=== PATIENT | male | born 1965 | race Caucasian/White ===

== ENCOUNTER 2016-11-23 20:08 | Emergency (ER) | payer OTHER ==
[~2016-11-23] VITALS: Ht 167.6 cm; Wt 90.7 kg
[~2016-11-23 20:08] MED LIST: ALBU8.5H8 IH; ASPI-605 PO; BUPR-96 PO; OMEP20CA10 PO; TRAZ-147 PO
[2016-11-23] MEDS ORDERED: [UNRECOGNIZED DRUG - REMARK] PO (20:24)
[2016-11-23] MEDS ORDERED: METF500T4 PO (20:24)
[2016-11-23] MEDS ORDERED: IV NORMAL SALINE 1000 ML BAG IV ONE (21:45)
[2016-11-23] MEDS ORDERED: LEVOFLOXACIN 750 MG/D5W 150 ML PIGGYBACK IV ONE (21:45)
[2016-11-23] MEDS ORDERED: METRONIDAZOLE 500 MG/NS 100 ML PIGGYBACK IV ONE (21:45)
[2016-11-23 21:59] LABS: BASOPHILS # (AUTO) 0.1 K/uL (0.0-8.0); BASOPHILS % (AUTO) 0.5 % (0.0-2.0); EOSINOPHILS # (AUTO) 0.2 K/uL (0.0-0.7); EOSINOPHILS % (AUTO) 2.1 % (0.0-7.0); HEMATOCRIT 45.6 % (40-50); HEMOGLOBIN 14.9 G/DL (14.0-18.0); LYMPHOCYTES # (AUTO) 1.6 K/UL (0.8-4.8); LYMPHOCYTES % (AUTO) 13.9 % (20.5-51.5); MEAN CORPUSCULAR HEMOGLOBIN 26.3 UUG (27.0-31.0); MEAN CORPUSCULAR HGB CONC 33 g/dL (32.0-37.0); MONOCYTES # (AUTO) 0.6 K/UL (0.1-1.30); MONOCYTES % (AUTO) 5.1 % (0.0-11.0); NEUTROPHILS % (AUTO) 78.4 % (38.5-71.5); PLATELET COUNT (AUTO) 302 K/UL (150-450); RED BLOOD CELL COUNT(AUTO) 5.64 MIL/UL (4.7-6.1); WHITE BLOOD COUNT (AUTO) 11.5 K/UL (4.0-11.2)
[2016-11-23 22:03] LABS: CREATININE 1.2 mg/dL (0.6-1.3)
[2016-11-23 22:08] LABS: BILIRUBIN,DIRECT 0.1 mg/dL (0.0-0.2); BILIRUBIN,TOTAL 0.3 mg/dL (0.2-1.0); TOTAL PROTEIN, SERUM 8.7 g/dL (6.4-8.2)
[2016-11-23] MEDS ORDERED: LEVOFLOXACIN 750MG/D5W 150 ML IV ONE (23:34)
--- NOTE | 2016-11-24 01:05 | NUR ---
Patient discharged to home in stable conditon. Written and verbal after care instructions given. Patient verbalizes understanding of instructions. Ambulated from ER with stable gait. All belongings with patient.
[2016-11-24 01:07] VITALS: BP 132/71
== END 2016-11-24 01:07 | disposition home or self-care (01) ==
LOC: ER 20:09
DX: K52.9 Noninfective gastroenteritis and colitis, unspecified (principal); J45.909 Unspecified asthma, uncomplicated; F32.9 Major depressive disorder, single episode, unspecified; K21.9 Gastro-esophageal reflux disease without esophagitis; Z79.82 Long term (current) use of aspirin
CPT/HCPCS: 36415; 71010; 74176; 80048; 80076; 83605; 83690; 84484; 85025; 87040 ×2; 93005; 96365; 96367; 99285; A4663; J1956; J3490; J7030; 70030-TC

== ENCOUNTER 2017-04-26 15:18 | Emergency (ER) | payer OTHER ==
[~2017-04-26] VITALS: Ht 167.6 cm; Wt 100.2 kg
[~2017-04-26 15:18] MED LIST changes: +METF500T4 PO; +[UNRECOGNIZED DRUG - REMARK] PO
[2017-04-26] MEDS ORDERED: HYDROMORPHONE 1 MG/1 ML DISP.SYRIN IV ONE (16:00)
[2017-04-26] MEDS ORDERED: ONDANSETRON 4 MG/2 ML VIAL IV ONE (16:00)
[2017-04-26] MEDS ORDERED: IV NORMAL SALINE 1000 ML BAG IV ONE (16:00)
[2017-04-26 16:23] LABS: BASOPHILS # (AUTO) 0.2 K/uL (0.0-8.0); EOSINOPHILS # (AUTO) 0.5 K/uL (0.0-0.7); EOSINOPHILS % (AUTO) 3.3 % (0.0-7.0); HEMATOCRIT 45.8 % (40-50); HEMOGLOBIN 15.4 G/DL (14.0-18.0); LYMPHOCYTES # (AUTO) 1.8 K/UL (0.8-4.8); LYMPHOCYTES % (AUTO) 10.9 % (20.5-51.5); MEAN CORPUSCULAR HEMOGLOBIN 26.5 UUG (27.0-31.0); MEAN CORPUSCULAR HGB CONC 34 g/dL (32.0-37.0); MONOCYTES # (AUTO) 0.7 K/UL (0.1-1.30); MONOCYTES % (AUTO) 4.3 % (0.0-11.0); NEUTROPHILS # (AUTO) 13.2 K/UL (1.8-8.9); NEUTROPHILS % (AUTO) 80.5 % (38.5-71.5); PLATELET COUNT (AUTO) 313 K/UL (150-450); RED BLOOD CELL COUNT(AUTO) 5.79 MIL/UL (4.7-6.1); WHITE BLOOD COUNT (AUTO) 16.4 K/UL (4.0-11.2)
[2017-04-26 16:26] LABS: POTASSIUM 3.9 mmol/L (3.5-5.1)
[2017-04-26] MEDS ORDERED: ONDANSETRON 4 MG/2 ML VIAL ONE (16:26)
[2017-04-26] MEDS ORDERED: HYDROMORPHONE 2 MG/1 ML DISP.SYRIN ONE (16:27)
[2017-04-26 16:32] LABS: BILIRUBIN,DIRECT 0.1 mg/dL (0.0-0.2); BILIRUBIN,TOTAL 0.3 mg/dL (0.2-1.0); TOTAL PROTEIN, SERUM 7.8 g/dL (6.4-8.2)
[2017-04-26 16:35] LABS: BAND % (MANUAL) 12 % (0-10); EOSINOPHILS % (MANUAL) 3 % (0-8); LYMPHOCYTES % (MANUAL) 10 % (20-40); MONOCYTES % (MANUAL) 4 % (2-10); NEUTROPHILS % (MANUAL) 71 % (42-75)
[2017-04-26] MEDS ORDERED: DIPHENOXYLATE HCL/ATROP SULF TABLET PO ONE (17:15)
[2017-04-26] MEDS ORDERED: DIPHENOXYLATE HCL/ATROP SULF TABLET ONE (17:24)
--- NOTE | 2017-04-26 17:35 | NUR ---
PT TAKEN OUT OF ER FOR CT
--- NOTE | 2017-04-26 17:53 | NUR ---
PT BACK FROM CT, DENIES PAIN.
[2017-04-26 18:24] VITALS: BP 128/72
== END 2017-04-26 18:26 | disposition home or self-care (01) ==
LOC: ER 15:18
DX: K52.9 Noninfective gastroenteritis and colitis, unspecified (principal); K21.9 Gastro-esophageal reflux disease without esophagitis; J45.909 Unspecified asthma, uncomplicated; N20.0 Calculus of kidney; Z79.82 Long term (current) use of aspirin; E11.9 Type 2 diabetes mellitus without complications
CPT/HCPCS: 36415; 74176; 80048; 80076; 83690; 85025; 96360; 96374; 96375; 99285; A4663; J1170; J2405; J7030

== ENCOUNTER 2018-04-25 06:08 | Emergency (ER) | payer OTHER ==
[~2018-04-25] VITALS: Ht 167.6 cm; Wt 99.8 kg
[~2018-04-25 06:08] MED LIST changes: +METF-440 PO; -METF500T4 PO; -TRAZ-147 PO; +TRAZ-214 PO
[2018-04-25] MEDS ORDERED: TRAZ-214 PO (06:31)
[2018-04-25] MEDS ORDERED: KETOROLAC TROMETHAMINE 30 MG INJ IVP ONE (06:45)
[2018-04-25] MEDS ORDERED: IV NORMAL SALINE 1000 ML BAG IV ONE (06:45)
[2018-04-25] MEDS ORDERED: ONDANSETRON 4 MG/2 ML VIAL IV ONE (06:45)
[2018-04-25] MEDS ORDERED: KETOROLAC TROMETHAMINE 30 MG INJ ONE (06:52)
[2018-04-25] MEDS ORDERED: ONDANSETRON 4 MG/2 ML VIAL ONE (06:52)
[2018-04-25 06:58] LABS: BASOPHILS % (AUTO) 0.3 % (0.0-2.0); EOSINOPHILS # (AUTO) 0.3 K/uL (0.0-0.7); EOSINOPHILS % (AUTO) 2.2 % (0.0-7.0); HEMATOCRIT 40.6 % (36.7-47.1); HEMOGLOBIN 13.5 g/dL (12.5-16.3); LYMPHOCYTES # (AUTO) 2.8 K/uL (20.0-40.0); LYMPHOCYTES % (AUTO) 20.4 % (20.5-51.5); MEAN CORPUSCULAR HEMOGLOBIN 27.4 uug (23.8-33.4); MEAN CORPUSCULAR HGB CONC 33 g/dL (32.5-36.3); MEAN CORPUSCULAR VOLUME 82.6 fL (73.0-96.2); MONOCYTES # (AUTO) 0.8 K/uL (2.0-10.0); MONOCYTES % (AUTO) 5.6 % (0.0-11.0); NEUTROPHILS # (AUTO) 9.7 K/uL (1.8-8.9); NEUTROPHILS % (AUTO) 71.5 % (38.5-71.5); PLATELET COUNT (AUTO) 277 K/uL (152-348); RED BLOOD CELL COUNT(AUTO) 4.92 MIL/uL (4.06-5.63); WHITE BLOOD COUNT (AUTO) 13.6 K/uL (3.6-10.2)
--- NOTE | 2018-04-25 07:01 | NUR ---
Report given to Harmony MEJIA.
[2018-04-25 07:04] LABS: CREATININE 1.1 mg/dL (0.6-1.3); POTASSIUM 3.9 mmol/L (3.5-5.1)
[2018-04-25 07:10] LABS: BILIRUBIN,DIRECT 0.1 mg/dL (0.0-0.2); BILIRUBIN,TOTAL 0.3 mg/dL (0.2-1.0); TOTAL PROTEIN, SERUM 8.1 g/dL (6.4-8.2)
--- NOTE | 2018-04-25 07:21 | NUR ---
Patient states he feels better, no nausea at this time.
--- NOTE | 2018-04-25 08:06 | NUR ---
IV removed. Catheter intact and site benign. Pressure and 4x4 gauze applied to site. No bleeding noted.
--- NOTE | 2018-04-25 08:15 | NUR ---
DC, Rx and follow up instructions given and explained to patient who states he understands all instrucrtions.
[2018-04-25 08:17] VITALS: BP 136/84
== END 2018-04-25 08:18 | disposition home or self-care (01) ==
LOC: ER 06:14
DX: R10.33 Periumbilical pain (principal); R10.31 Right lower quadrant pain; J45.909 Unspecified asthma, uncomplicated; K21.9 Gastro-esophageal reflux disease without esophagitis
CPT/HCPCS: 36415; 74176; 80048; 80076; 83690; 85025; 93005; 96361; 96374; 96375; 99284; J1885; J2405; A4663; J7030

== ENCOUNTER 2019-08-04 13:42 | Emergency (ER) | payer OTHER ==
[~2019-08-04] VITALS: Ht 167.6 cm; Wt 99.3 kg
--- NOTE | 2019-08-04 15:16 | NUR ---
Patient discharged to home in stable conditon. Written and verbal after care instructions given. Patient verbalizes understanding of instructions. Patient ambulated with stable gait.
[2019-08-04 15:17] VITALS: BP 135/92
== END 2019-08-04 15:19 | disposition home or self-care (01) ==
LOC: ER 13:44
DX: J45.901 Unspecified asthma with (acute) exacerbation (principal); K21.9 Gastro-esophageal reflux disease without esophagitis; F32.9 Major depressive disorder, single episode, unspecified; E11.9 Type 2 diabetes mellitus without complications; Z79.82 Long term (current) use of aspirin; Z79.899 Other long term (current) drug therapy
CPT/HCPCS: A4663

== ENCOUNTER 2020-03-15 21:52 | Emergency (ER) | payer OTHER ==
[~2020-03-15] VITALS: Ht 167.6 cm; Wt 99.0 kg
[~2020-03-15 21:52] MED LIST changes: -OMEP20CA10 PO; +OMEP20CA15 PO; -TRAZ-214 PO; +TRAZ-257 PO
[2020-03-15] MEDS ORDERED: IV NORMAL SALINE 1000 ML BAG IV ONE (22:15)
[2020-03-15] MEDS ORDERED: KETOROLAC TROMETHAMINE 30 MG INJ IVP ONE (22:15)
--- NOTE | 2020-03-15 22:15 | NUR ---
Patient walked into ER c/o sudden onset of LLQ abdominal pain after eatting dinner with x3 episode of N/V at home and x1 episode in the waiting room.
[2020-03-15] MEDS ORDERED: KETOROLAC TROMETHAMINE 30 MG INJ ONE (22:29)
[2020-03-15 22:33] LABS: BASOPHILS # (AUTO) 0.1 K/uL (0.0-8.0); BASOPHILS % (AUTO) 0.7 % (0.0-2.0); EOSINOPHILS # (AUTO) 0.3 K/uL (0.0-0.7); EOSINOPHILS % (AUTO) 2.6 % (0.0-7.0); HEMATOCRIT 40.2 % (36.7-47.1); HEMOGLOBIN 13.2 g/dL (12.5-16.3); LYMPHOCYTES # (AUTO) 3.1 K/uL (20.0-40.0); LYMPHOCYTES % (AUTO) 27.8 % (20.5-51.5); MEAN CORPUSCULAR HEMOGLOBIN 26.8 uug (23.8-33.4); MEAN CORPUSCULAR HGB CONC 33 g/dL (32.5-36.3); MEAN CORPUSCULAR VOLUME 81.8 fL (73.0-96.2); MONOCYTES # (AUTO) 0.7 K/uL (2.0-10.0); MONOCYTES % (AUTO) 6.4 % (0.0-11.0); NEUTROPHILS % (AUTO) 62.5 % (38.5-71.5); PLATELET COUNT (AUTO) 311 K/uL (152-348); RED BLOOD CELL COUNT(AUTO) 4.92 MIL/uL (4.06-5.63); WHITE BLOOD COUNT (AUTO) 11.2 K/uL (3.6-10.2)
[2020-03-15 22:41] LABS: BILIRUBIN,DIRECT 0.1 mg/dL (0.0-0.2); BILIRUBIN,TOTAL 0.2 mg/dL (0.2-1.0); CREATININE 1.3 mg/dL (0.6-1.3); POTASSIUM 4.5 mmol/L (3.5-5.1)
[2020-03-15 23:58] LABS: *BILIRUBIN,URIN NEGATIVE (NEGATIVE); *BLOOD, URINE 2+ (NEGATIVE); *CLARITY,URINE CLEAR (CLEAR); *COLOR,URINE YELLOW (YELLOW); *KETONES,URINE NEGATIVE (NEGATIVE); *UROBILINOGEN,URINE 0.2 E.U./dl (NORMAL); LEUKOCYTE ESTERASE ,URINE NEGATIVE (NEGATIVE); NITRITE, URINE NEGATIVE (NEGATIVE); PH,URINE 7.5 (5.0-8.0); UGLUCOSE NEGATIVE (NEGATIVE)
--- NOTE | 2020-03-16 00:06 | NUR ---
Patient discharged to home in stable condition. Written and verbal after care instructions given. Patient verbalizes understanding of instructions. Stressed follow up or return to ER for worsening s/s. Patient ambulated with stable gait.
[2020-03-16 00:08] VITALS: BP 122/83
[2020-03-16 00:51] LABS: BACTERIA,URINE NONE SEEN /HPF (NONE SEEN); WBC,URINE 0-3 /HPF (0-3)
== END 2020-03-16 00:08 | disposition home or self-care (01) ==
LOC: ER 22:03
DX: R10.32 Left lower quadrant pain (principal); K21.9 Gastro-esophageal reflux disease without esophagitis; E11.9 Type 2 diabetes mellitus without complications; J45.909 Unspecified asthma, uncomplicated; Z79.84 Long term (current) use of oral hypoglycemic drugs; Z79.899 Other long term (current) drug therapy
CPT/HCPCS: 36415; 80048; 80076; 81001; 83690; 85025; 96361; 96374; 99284; J1885; A4663; J7030

== ENCOUNTER → 2022-07-09 | Emergency (ER) | payer OTHER ==
[~2022-07-09] VITALS: Ht 167.6 cm; Wt 102.1 kg
[~2022-07-09] MED LIST changes: +FAMOTIDINE. 20 MG/2 ML VIAL IV ONE; +IV NORMAL SALINE 1000 ML BAG IV ONE; +LIDOCAINE HCL 2% 20 ML VIAL ONE; +MAG HYDROX/AL HYDROX/SIMETH 30 ML LIQUID UDC ONE; +MAG HYDROX/AL HYDROX/SIMETH 30 ML LIQUID UDC PO ONE; +ONDA4TAB11 PO; +ONDANSETRON 4 MG/2 ML VIAL IV ONE; +ONDANSETRON 4 MG/2 ML VIAL ONE
--- NOTE | 2022-07-09 12:02 | NUR ---
56 years old male walk in to er c/o abdominal pain with nausea diarrhea, denies fever chills, no pain with palpation.
[2022-07-09 12:17] LABS: HEMATOCRIT 40.7 % (36.7-47.1); MEAN CORPUSCULAR HEMOGLOBIN 26.1 uug (23.8-33.4); MEAN CORPUSCULAR VOLUME 81.3 fL (73.0-96.2); PLATELET COUNT (AUTO) 304 K/uL (152-348)
[2022-07-09 12:27] LABS: CREATININE 1.2 mg/dL (0.6-1.3); POTASSIUM 3.9 mmol/L (3.5-5.1)
[2022-07-09 12:32] LABS: BILIRUBIN,DIRECT 0.1 mg/dL (0.0-0.2); BILIRUBIN,TOTAL 0.4 mg/dL (0.2-1.0); TOTAL PROTEIN, SERUM 7.8 g/dL (6.4-8.2)
[2022-07-09 12:36] LABS: *BILIRUBIN,URIN NEGATIVE (NEGATIVE); *BLOOD, URINE NEGATIVE (NEGATIVE); *CLARITY,URINE CLEAR (CLEAR); *COLOR,URINE YELLOW (YELLOW); *KETONES,URINE NEGATIVE (NEGATIVE); *UROBILINOGEN,URINE 0.2 E.U./dl (NORMAL); LEUKOCYTE ESTERASE ,URINE NEGATIVE (NEGATIVE); NITRITE, URINE NEGATIVE (NEGATIVE); UGLUCOSE 3+ (NEGATIVE)
[2022-07-09 14:47] VITALS: BP 121/77
== END | disposition home or self-care (01) ==
LOC: ER 11:38
DX: R10.9 Unspecified abdominal pain (principal); R11.2 Nausea with vomiting, unspecified; R19.7 Diarrhea, unspecified; R74.8 Abnormal levels of other serum enzymes; K83.8 Other specified diseases of biliary tract; E11.9 Type 2 diabetes mellitus without complications; J45.909 Unspecified asthma, uncomplicated; Z79.84 Long term (current) use of oral hypoglycemic drugs; Z79.899 Other long term (current) drug therapy; Z79.82 Long term (current) use of aspirin; F32.A Depression, unspecified
CPT/HCPCS: 99285; 96374; 76705; 96361; 96375; 80076; 80048; 81003; 83690; 85025; 85730; 36415; J3490 ×2; J2405; J7040; A4663

== ENCOUNTER 2023-04-29 10:39 | Emergency (ER) | payer OTHER ==
[~2023-04-29] VITALS: Ht 167.6 cm; Wt 95.3 kg
[~2023-04-29 10:39] MED LIST changes: -FAMOTIDINE. 20 MG/2 ML VIAL IV ONE; -IV NORMAL SALINE 1000 ML BAG IV ONE; -LIDOCAINE HCL 2% 20 ML VIAL ONE; -MAG HYDROX/AL HYDROX/SIMETH 30 ML LIQUID UDC ONE; -MAG HYDROX/AL HYDROX/SIMETH 30 ML LIQUID UDC PO ONE; -ONDANSETRON 4 MG/2 ML VIAL IV ONE; -ONDANSETRON 4 MG/2 ML VIAL ONE
[2023-04-29 10:50] VITALS: O2SAT 97
[2023-04-29] MEDS ORDERED: ATOR10TA PO (11:03)
[2023-04-29] MEDS ORDERED: EMPA25TA PO (11:03)
[2023-04-29] MEDS ORDERED: SITA100T PO (11:03)
[2023-04-29] MEDS ORDERED: GLIP5TAB13 PO (11:03)
[2023-04-29] MEDS ORDERED: TOPI100T PO (11:03)
[2023-04-29] MEDS ORDERED: CLIN60LO TP (12:16)
== END 2023-04-29 11:21 | disposition home or self-care (01) ==
LOC: ER 10:42
DX: S80.211A Abrasion, right knee, initial encounter (principal); J45.909 Unspecified asthma, uncomplicated; K21.9 Gastro-esophageal reflux disease without esophagitis; E11.9 Type 2 diabetes mellitus without complications; Z79.2 Long term (current) use of antibiotics; Z79.899 Other long term (current) drug therapy; Z79.82 Long term (current) use of aspirin; W18.39XA Other fall on same level, initial encounter; Y93.89 Activity, other specified; Y92.89 Other specified places as the place of occurrence of the external cause; Y99.8 Other external cause status
CPT/HCPCS: A4606; A4663

== ENCOUNTER 2025-01-04 19:01 | Emergency (ER) | payer OTHER ==
[~2025-01-04] VITALS: Ht 167.6 cm; Wt 95.3 kg
[~2025-01-04 19:01] MED LIST changes: -ASPI-605 PO; +ATOR10TA PO; +CLIN60LO TP; +EMPA25TA PO; +GLIP5TAB13 PO; -ONDA4TAB11 PO; +SITA100T PO; +TOPI100T PO; -[UNRECOGNIZED DRUG - REMARK] PO
[2025-01-04] MEDS: IV NORMAL SALINE 1000 ML BAG IV ONE (19:36)
[2025-01-04 19:39] LABS: PLATELET COUNT (AUTO) 308 K/uL (152-348); RED BLOOD CELL COUNT(AUTO) 5.90 MIL/uL (4.06-5.63); RED CELL DISTRIBUTION WIDTH 15.5 % (12.1-16.2); WHITE BLOOD COUNT (AUTO) 20.1 K/uL (3.6-10.2)
[2025-01-04 19:42] LABS: *BILIRUBIN,URIN NEGATIVE (NEGATIVE); *BLOOD, URINE 3+ (NEGATIVE); *CLARITY,URINE SLIGHTLY CLOUDY (CLEAR); *COLOR,URINE YELLOW (YELLOW); *KETONES,URINE 1+ (NEGATIVE); *PROTEIN,URINE 2+ (NEGATIVE); *UROBILINOGEN,URINE 0.2 E.U./dl (NORMAL); LEUKOCYTE ESTERASE ,URINE 1+ (NEGATIVE); NITRITE, URINE POSITIVE (NEGATIVE); UGLUCOSE 3+ (NEGATIVE)
[2025-01-04 19:42] LABS: CREATININE 1.6 mg/dL (0.6-1.3); SODIUM SERUM 140.0 mmol/L (136-145); UREA NITROGEN, BLOOD 23.0 mg/dL (7-18)
[2025-01-04 19:48] LABS: ASPARTATE AMINOTRANSFERASE 19.0 U/L (15-37); TOTAL PROTEIN, SERUM 8.9 g/dL (6.4-8.2)
[2025-01-04 19:53] LABS: SQUAMOUS EPITHELIAL CELL,UR FEW /HPF (NONE SEEN)
[2025-01-04] MEDS ORDERED: CEFTRIAXONE /D5W 50ML IVPB **ER PYXIS IV ONE (20:08)
[2025-01-04] MEDS: CEFTRIAXONE 1 G in IV DEXTROSE 5% 50 ML IV ONE (20:14)
[2025-01-04] MEDS ORDERED: CEFD300C3 PO (22:28)
[2025-01-04] MEDS ORDERED: ONDA4TAB11 PO (22:29)
[2025-01-04] MEDS: IV NS 1000 ML 1,000 ML IV ONE (22:32)
[2025-01-04 23:43] VITALS: BP 130/80; TEMP 98; O2SAT 99
== END 2025-01-04 23:30 | disposition home or self-care (01) ==
LOC: ER 19:01
DX: R11.2 Nausea with vomiting, unspecified (principal); R19.7 Diarrhea, unspecified; K21.9 Gastro-esophageal reflux disease without esophagitis; E86.0 Dehydration; N17.9 Acute kidney failure, unspecified; E11.9 Type 2 diabetes mellitus without complications; F32.A Depression, unspecified; J45.909 Unspecified asthma, uncomplicated; Z79.84 Long term (current) use of oral hypoglycemic drugs; Z79.899 Other long term (current) drug therapy; Z87.442 Personal history of urinary calculi; Z88.7 Allergy status to serum and vaccine; Z87.39 Personal history of other diseases of the musculoskeletal system and connective tissue
CPT/HCPCS: 99285; 74176; 96365; 96361; 80076; 80048; 81001; 83690; 85025; 87040 ×2; 87186; 87086; 87077; 36415; 83605; J0696; J7040 ×2; A4606; A4663